=== PATIENT | female | born 1965 | race Caucasian/White ===

== ENCOUNTER 2018-07-10 01:02 | Emergency (ER) | payer OTHER ==
[2018-07-10] MEDS ORDERED: ACETAMINOPHEN 500 MG TABLET PO STA (01:12)
[2018-07-10] MEDS ORDERED: NAPROXEN 250 MG TABLET PO STA (01:12)
--- NOTE | 2018-07-10 02:05 | XRAY Report ---
Reason: cough Procedure Date: 07/10/2018 Accession Number: [id number] / [id number] Procedure: XR - Chest 2 View X-Ray CPT Code: 23452 FULL RESULT: EXAM: CHEST RADIOGRAPHY EXAM DATE: 07/10/2018 01:49 AM. CLINICAL HISTORY: Cough and congestion. Fever. COMPARISON: None. TECHNIQUE: 2 views. FINDINGS: Lungs/Pleura: No alveolar consolidation or pleural effusion seen. Mild bronchial wall thickening. No pneumothorax. Mediastinum: Heart and mediastinal contours are unremarkable. Other: Status post cholecystectomy. IMPRESSION: 1. Bronchial wall thickening. This can be seen with bronchitis or reactive airways disease. RADIA
--- NOTE | 2018-07-10 02:25 | ED Physician Documentation ---
PD HPI URI - Stated complaint Stated Complaint: COUGH,FEVER - Chief complaint Chief Complaint: Fever - Additional information Additional information: 52-year-old female presents the emergency department with nasal congestion, cough, body aches and general fatigue which started yesterday and is progressively worsened.The patient denies any shortness of breath or dyspnea on exertion. Symptoms are described as moderate. The patient does get improvement with antipyretics. No other associated symptoms. Review of Systems Constitutional: reports: Fever, Chills, Myalgias, Fatigue Eyes: denies: Discharge Ears: denies: Ear pain Nose: reports: Rhinorrhea / runny nose, Congestion Throat: denies: Sore throat Cardiac: denies: Chest pain / pressure Respiratory: reports: Cough. denies: Dyspnea, Wheezing GI: denies: Abdominal Pain : denies: Dysuria Musculoskeletal: denies: Neck pain Neurologic: denies: Generalized weakness PD PAST MEDICAL HISTORY - Past Medical History Endocrine/Autoimmune: HyPOthyroidism GI: GERD - Past Surgical History Past Surgical History: Yes General: Cholecystectomy - Present Medications Home Medications: Ambulatory Orders Medication Instructions Recorded Confirmed Hydrocodone/Acetaminophen 1 - 2 each PO Q6H PRN #15 tablet 10/23/14 [Hydrocodon-Acetaminophen 5-325] Penicillin Vk 500 mg PO Q6H 10 Days tablet 10/23/14 - Allergies Allergies/Adverse Reactions: Allergies Allergy/AdvReac Type Severity Reaction Status Date / Time No Known Drug Allergies Allergy Verified 10/23/14 06:59 - Social History Does the pt smoke?: Yes Smoking Status: Current every day smoker Does the pt drink ETOH?: Yes Does the pt have substance abuse?: No - Immunizations Immunizations are current?: Yes - POLST Patient has POLST: No PD ED PE NORMAL - General General: Alert and oriented X 3, No acute distress - HEENT HEENT: Atraumatic, PERRL, EOMI, Ears normal - Neck Neck: Supple, no meningeal sign - Cardiac Cardiac: RRR (Regular tachycardia secondary to the fever and viral process), Strong equal pulses - Respiratory Respiratory: No respiratory distress, Clear bilaterally - Derm Derm: Normal color - Extremities Extremities: No deformity - Neuro Neuro: Alert and oriented X 3, Normal speech - Psych Psych: Normal affect Results - Vitals Vitals: Vital Signs - 24 hr 07/10/18 01:06 Temperature 38.4 C H Heart Rate 119 H Respiratory 16 Rate Blood Pressure 146/78 H O2 Saturation 97 Oxygen O2 Source Room air - Labs Labs: Laboratory Tests 07/10/18 01:19 Influenza A (Rapid) Negative Influenza B (Rapid) Negative - Rads (name of study) CXR Radiology: Final report received, See rad report (1. Bronchial wall thickening. This can be seen with bronchitis or Reactive airway disease) PD MEDICAL DECISION MAKING - ED course ED course: On reevaluation the patient is resting comfortably, her symptoms are suggestive of an influenza-like illness. Presently the patient appears appropriate for discharge and ongoing outpatient management. I discussed warning signs and recommended returning to the emergency department medially for any worsening or any concerns Departure - Departure Disposition: 01 Home, Self Care Clinical Impression: Influenza-like illness Condition: Good Instructions: ED Fever Control, ED Flu Follow-Up: Shirley Kilgore PA-C [Primary Care Provider] - Within 1 week Comments: Please return to the emergency department for worsening symptoms or any concerns Forms: Activity restrictions
[2018-07-10 02:32] VITALS: BP 135/81
== END 2018-07-10 02:32 | disposition home or self-care (01) ==
LOC: ED 01:02
DX: R69 Illness, unspecified (principal); R53.83 Other fatigue; R05 Cough; R50.9 Fever, unspecified; F17.200 Nicotine dependence, unspecified, uncomplicated
CPT/HCPCS: 71046; 87275; 87276; 99283; A9270